=== PATIENT | female | born 1990 | race Caucasian/White ===

== ENCOUNTER 2017-08-29 10:20 | Inpatient (IN) | payer MEDICAID ==
[~2017-08-29] VITALS: Ht 162.6 cm; Wt 84.4 kg
[2017-08-29] MEDS ORDERED: LACTATED RINGERS 500 ML 500 ML IV PRN (10:30)
[2017-08-29] MEDS ORDERED: EPHEDRINE SULFATE 50 MG/ML AMPULE IVP PRN ×2 (10:30→22:15)
[2017-08-29] MEDS ORDERED: NALOXONE HCL 0.4 MG/1 ML ML IV PRN (10:30)
[2017-08-29] MEDS ORDERED: MEPERIDINE-PF 50 MG/ML SYG IVP PRN (10:45)
[2017-08-29] MEDS ORDERED: OXYTOCIN 10 USP UNITS/ML 20 UNIT in LACTATED RINGERS 1000ML 1,000 ML IV SCH (10:45)
[2017-08-29] MEDS ORDERED: PROMETHAZINE HCL 25 MG/ML 1ML AMPULE IM PRN ×3 (10:45→22:15)
[2017-08-29 11:06] LABS: APPEARANCE,URINE Clear (CLEAR); BILIRUBIN,URINE Negative (NEGATIVE); COLOR,URINE Yellow (YELLOW); GLUCOSE, URINE (UA) Negative (NEGATIVE); KETONES,URINE 40 mg/dL (NEGATIVE); LEUKOCYTE ESTERASE ,URINE Negative (NEGATIVE); NITRATE,URINE Negative (NEGATIVE); OCCULT BLOOD,URINE Negative (NEGATIVE); PH,URINE 6.5 (5.0-8.0); PROTEIN,URINE Negative (NEGATIVE)
[2017-08-29] MEDS ORDERED: LACTATED RINGERS 1000ML 1,000 ML IV ONE (11:07)
[2017-08-29] MEDS ORDERED: OXYTOCIN 10 USP UNITS/ML ONE (11:07)
[2017-08-29 11:15] LABS: HEMATOCRIT 36.3 % (36-48); MEAN CORPUSCULAR HEMOGLOBIN 30.8 pg (27.0-33.0); MEAN CORPUSCULAR HGB CONC 35.5 g/dL (32.0-36.0); MEAN CORPUSCULAR VOLUME 86.9 fL (79-99); NUCLEATED RED BLOOD CELLS 0.1 % (0.0-0.19); PLATELET COUNT (AUTO) 235 K/uL (130-400); RED BLOOD CELL COUNT(AUTO) 4.17 MIL/uL (4.00-5.50); RED CELL DISTRIBUTION WIDTH 12.7 % (11.0-15.5); WHITE BLOOD COUNT (AUTO) 12.8 K/uL (4.8-10.8)
[2017-08-29 11:21] LABS: CREATININE 0.5 mg/dL (0.5-1.5); POTASSIUM 3.6 mmol/L (3.5-5.1)
[2017-08-29 11:23] LABS: BACTERIA,URINE Rare /HPF (None Seen); MUCUS,URINE Few LPF (None Seen); SQUAMOUS EPITHELIAL CELL,UR Few /HPF (0-2); WBC,URINE 0-1 /HPF (0-1)
[2017-08-29 11:27] LABS: ALBUMIN 2.9 g/dL (3.5-5.0); BILIRUBIN,TOTAL 0.4 mg/dL (0.2-1.0); INR 0.87 (0.85-1.15); PARTIAL THROMBOPLASTIN TIME 27.9 SEC (26.3-35.5); PROTHROMBIN TIME 9.2 SEC (9.6-11.6)
[2017-08-29] MEDS ORDERED: AMPICILLIN 2GM+NS 100ML 100 ML IV ONE (12:58)
[2017-08-29] MEDS ORDERED: AMPICILLIN 2GM+NS 100ML 100 ML IV SCH (13:00)
[2017-08-29] MEDS: LACTATED RINGERS 1000ML 1,000 ML IV PRN ×2 (15:11→16:12)
[2017-08-29] MEDS: AMPICILLIN 1GM+NS 50ML 50 ML IV SCH ×2 (16:27→21:00)
[2017-08-29] MEDS ORDERED: CALDOLOR 800MG+NS 250ML 250 ML IV PRN (19:00)
[2017-08-29] MEDS ORDERED: CEFAZOLIN SODIUM 1 GM VIAL IVP PRN (19:00)
[2017-08-29] MEDS ORDERED: CEFAZOLIN SODIUM 1 GM VIAL ONE (19:04)
[2017-08-29] MEDS ORDERED: OXYTOCIN-LR 20 UNITS/1000 ML 1,000 ML IV PRN (19:15)
[2017-08-29] MEDS ORDERED: DEXTROSE 5 %-0.45 % NACL 1,000 ML IV PRN (19:15)
[2017-08-29] MEDS ORDERED: DIPHENHYDRAMINE HCL 25 MG CAPSULE PO PRN (19:15)
[2017-08-29] MEDS ORDERED: MEPERIDINE-PF 75 MG/ML SYG IM PRN (19:15)
[2017-08-29] MEDS ORDERED: HYDROCODONE/ACETAMINOPHEN 5/325 MG TAB PO PRN ×2 (19:15)
[2017-08-29] MEDS ORDERED: SODIUM CHLORIDE 0.9% 10 ML VIAL IVP PRN (19:15)
[2017-08-29] MEDS ORDERED: ACETAMINOPHEN EXTRA STRENGTH 500 MG TABLET PO PRN (19:15)
[2017-08-29] MEDS ORDERED: LANOLIN 30GM OINTMENT TP PRN (19:15)
[2017-08-29] MEDS ORDERED: BISACODYL 10 MG SUPP.RECT RC PRN (19:15)
[2017-08-29] MEDS ORDERED: METHYLERGONOVINE MALEATE 0.2 MG/1 ML ML ONE (19:55)
[2017-08-29] MEDS ORDERED: LIDOCAINE HCL-MPF 2% 10ML AMP IJ ONE (19:59)
[2017-08-29] MEDS ORDERED: MIDAZOLAM HCL 1 MG/ML 2ML VIAL ONE (20:03)
[2017-08-29] MEDS ORDERED: FENTANYL CITRATE PF 50 MCG/1 ML 2ML VIAL ONE (20:03)
[2017-08-29] MEDS ORDERED: OXYTOCIN 10 UNIT/1ML 10ML VIAL ONE (20:06)
[2017-08-29] MEDS ORDERED: MISOPROSTOL 200 MCG TABLET ONE (20:23)
[2017-08-29] MEDS ORDERED: MISOPROSTOL 200 MCG TABLET PR ONE (21:00)
[2017-08-29] MEDS ORDERED: METOCLOPRAMIDE 10 MG/2 ML VIAL IVP PRN (22:15)
[2017-08-29] MEDS ORDERED: NALOXONE HCL 0.4 MG/1 ML ML IVP PRN (22:15)
[2017-08-29] MEDS ORDERED: DiphenhydrAMINE HCL 50 MG/ML VIAL IVP PRN (22:15)
[2017-08-29] MEDS ORDERED: ONDANSETRON HCL 4 MG/2 ML VIAL IVP PRN ×2 (22:15)
[2017-08-29] MEDS ORDERED: MORPHINE SULFATE 2 MG/ML 1ML SYG IVP PRN (22:15)
[2017-08-29] MEDS ORDERED: ROPIVACAINE 0.2%200ML EPIDURAL 200 ML EP SCH (22:15)
[2017-08-29] MEDS ORDERED: ONDANSETRON HCL 4 MG/2 ML 8 MG in SODIUM CHLORIDE 0.9% 50 ML IVP NR (22:15)
[2017-08-29 22:40] VITALS: BP 113/60
[2017-08-30] VITALS (7 sets, daily range): BP systolic 120–139; BP diastolic 69–81
[2017-08-30] MEDS: ACETAMINOPHEN-CODEINE 300/30MG TAB PO PRN ×3 (00:33→21:49)
[2017-08-30] MEDS: AMPICILLIN 1GM+NS 50ML 50 ML IV SCH ×3 (01:00→17:00)
[2017-08-30] MEDS ORDERED: OXYTOCIN 10 USP UNITS/ML ONE (03:58)
[2017-08-30] MEDS: CALDOLOR 800MG+NS 250ML 250 ML IV SCH ×2 (04:03→12:31)
[2017-08-30 06:18] LABS: HEPATITIS Bs ANTIGEN SCREEN P Negative (Negative)
[2017-08-30 06:44] LABS: MEAN CORPUSCULAR HEMOGLOBIN 30.1 pg (27.0-33.0); MEAN CORPUSCULAR HGB CONC 34.4 g/dL (32.0-36.0); MEAN CORPUSCULAR VOLUME 87.6 fL (79-99); PLATELET COUNT (AUTO) 188 K/uL (130-400); RED BLOOD CELL COUNT(AUTO) 3.77 MIL/uL (4.00-5.50); RED CELL DISTRIBUTION WIDTH 12.6 % (11.0-15.5)
[2017-08-30] MEDS: LIDOCAINE 5% TOPICAL PATCH TP SCH (08:44)
[2017-08-30] MEDS: SIMETHICONE 80 MG TAB.CHEW PO PRN ×2 (08:44→21:49)
[2017-08-30] MEDS: DOCUSATE SODIUM 100 MG CAP PO SCH ×3 (08:44→21:49)
[2017-08-30] MEDS: IBUPROFEN 800 MG TAB PO SCH (21:57)
[2017-08-31 04:00] VITALS: BP 117/69
[2017-08-31] MEDS: IBUPROFEN 800 MG TAB PO SCH (05:00)
[2017-08-31 07:41] VITALS: BP 102/61
[2017-08-31] MEDS: LIDOCAINE 5% TOPICAL PATCH TP SCH (09:35)
[2017-08-31] MEDS: SIMETHICONE 80 MG TAB.CHEW PO PRN (09:35)
[2017-08-31] MEDS: DOCUSATE SODIUM 100 MG CAP PO SCH (09:35)
[2017-08-31 11:41] VITALS: BP 136/80
== END 2017-08-31 12:35 | disposition home or self-care (01) | DRG 540 ==
LOC: LDH 10:20 → OBSVTOIN 10:20 → WSH 22:35
PROVIDERS: ADMIT Obstetrics & Gynecology; ATTEND Obstetrics & Gynecology
PROC: 10D00Z1 Extraction of Products of Conception, Low, Open Approach (ICD-10-PCS; principal; 2017-08-29 19:30)
DX: O62.0 Primary inadequate contractions (principal); O42.92 Full-term premature rupture of membranes, unspecified as to length of time between rupture and onset of labor; O62.2 Other uterine inertia; Z37.0 Single live birth; Z3A.38 38 weeks gestation of pregnancy
CPT/HCPCS: 36415; 59510; 80053; 81001; 84550; 85027; 85384; 85610; 85730; 86592; 86850; 86900; 86901; 87340; A4314; A4344; A4606; J0290; J0690; J1741; J2175; J2210; J2250; J2550; J2590; J3010; J3490; J7030; J7120